=== PATIENT | female | born 2000 | race Caucasian/White ===

== ENCOUNTER 2024-01-07 00:07 | Emergency (ER) | payer OTHER ==
[~2024-01-07] VITALS: Ht 167.6 cm; Wt 113.4 kg
[2024-01-07 00:09] VITALS: BP_SYST 125; PULSE 105; RESP 20; TEMP 97.7; O2SAT 98
[2024-01-07] MEDS: KETOROLAC TROMETHAMINE 60 MG/2 ML VIAL IM ONE (00:51)
[2024-01-07] MEDS ORDERED: CYCL10TA24 PO (01:15)
[2024-01-07] MEDS ORDERED: IBUP-1970 PO (01:15)
[2024-01-07 01:32] VITALS: BP_SYST 125; PULSE 105; RESP 20; TEMP 97.7; O2SAT 98
== END 2024-01-07 01:32 | disposition home or self-care (01) ==
LOC: SED 00:07
DX: S70.01XA Contusion of right hip, initial encounter (principal); M79.606 Pain in leg, unspecified; Z79.899 Other long term (current) drug therapy; V89.2XXA Person injured in unspecified motor-vehicle accident, traffic, initial encounter; Y93.89 Activity, other specified; Y92.89 Other specified places as the place of occurrence of the external cause; Y99.8 Other external cause status
CPT/HCPCS: 99284; 73502; 73552; 81025; 96372; J1885